=== PATIENT | female | born 1955 | race Caucasian/White ===

== ENCOUNTER 2020-12-06 08:03 | Emergency (ER) | payer BC, SELFPAY ==
[~2020-12-06] VITALS: Ht 170.2 cm; Wt 69.9 kg
[2020-12-06 08:09] VITALS: BP_SYST 158
[2020-12-06] MEDS ORDERED: NS 500 ML IV SCH (08:15)
[2020-12-06 09:08] LABS: BASOPHILS % (AUTO) 0.5 % (0.0-2.0); EOSINOPHILS % (AUTO) 0.2 % (0.0-4.0); HEMATOCRIT 43.5 % (36-48); HEMOGLOBIN 14.5 g/dL (12.0-16.0); LYMPHOCYTES # (AUTO) 1.1 K/uL (1.0-5.5); MEAN CORPUSCULAR HEMOGLOBIN 32 pg (27-31); MEAN CORPUSCULAR HGB CONC 33 % (32-36); MEAN CORPUSCULAR VOLUME 96 fL (79.0-98.0); MONOCYTES # (AUTO) 0.5 K/uL (0.0-1.0); MONOCYTES % (AUTO) 5.3 % (1.7-9.3); NEUTROPHILS # (AUTO) 8.1 K/uL (1.8-7.7); PLATELET COUNT (AUTO) 250 K/uL (130-430); RED BLOOD CELL COUNT(AUTO) 4.54 MIL/uL (4.2-6.2); WHITE BLOOD COUNT (AUTO) 9.8 K/uL (4.8-10.8)
[2020-12-06 09:53] LABS: CALCIUM 9.4 mg/dL (8.4-11.0); CREATININE 0.96 mg/dL (0.55-1.30); POTASSIUM 4.1 mmol/L (3.5-5.1)
[2020-12-06 10:06] LABS: PROTHROMBIN TIME 10.7 SECS (9.5-12.5)
[2020-12-06] MEDS ORDERED: NS 500 ML IV ONE (10:15)
[2020-12-06 10:16] LABS: ALBUMIN 3.8 g/dL (3.4-4.8); TOTAL BILIRUBIN 0.7 mg/dL (0.0-1.0)
[2020-12-06] MEDS ORDERED: CEFAZOLIN 2 GM IVPB PREMIX 50 ML IV ONE (11:15)
[2020-12-06] MEDS ORDERED: ceFAZolin SODIUM 2 GM in D5W 100 ML IV ONE (11:15)
[2020-12-06] MEDS ORDERED: ceFAZolin SODIUM 1 GM VIAL ONE (11:15)
[2020-12-06] MEDS ORDERED: LR 1,000 ML IV.SOLN IV ONE ×2 (11:32→12:13)
[2020-12-06] MEDS ORDERED: NS IRRIG SOLN 1000 ML IR ONE ×2 (11:32→12:13)
[2020-12-06] MEDS ORDERED: DEXAMETHASONE SOD PHOSPHATE 4 MG/ML VIAL IVP ONE (11:32)
[2020-12-06] MEDS ORDERED: fentaNYL CITRATE/PF 100 MCG/2 ML AMP IVP ONE (11:32)
[2020-12-06] MEDS ORDERED: MIDAZOLAM HCL 5 MG/5 ML VIAL IVP ONE (11:32)
[2020-12-06] MEDS ORDERED: PROPOFOL 200MG/ 20ML VIAL (DIPRIVAN) IV ONE ×2 (11:32→12:13)
[2020-12-06] MEDS ORDERED: WATER FOR IRRIGATION,STERILE 1,000 ML IRRIG.SOLN IR ONE ×2 (11:32→12:13)
[2020-12-06] MEDS ORDERED: ONDANSETRON HCL 4 MG/2 ML VIAL IVP ONE (11:32)
[2020-12-06] MEDS ORDERED: METOCLOPRAMIDE HCL 10 MG/2 ML VIAL IVP ONE (11:32)
[2020-12-06] MEDS ORDERED: fentaNYL CITRATE/PF 100 MCG/2 ML AMP ONE (12:13)
[2020-12-06] MEDS ORDERED: ONDANSETRON HCL 4 MG/2 ML VIAL ONE (12:13)
[2020-12-06] MEDS ORDERED: DEXAMETHASONE SOD PHOSPHATE 4 MG/ML VIAL ONE (12:13)
[2020-12-06] MEDS ORDERED: METOCLOPRAMIDE HCL 10 MG/2 ML VIAL ONE (12:13)
[2020-12-06] MEDS ORDERED: MIDAZOLAM HCL 5 MG/ML VIAL (VERSED) IV ONE (12:13)
[2020-12-06 13:24] VITALS: BP_SYST 109
== END 2020-12-06 11:20 | disposition admitted as inpatient to this hospital (09) ==
LOC: SED 08:03
DX: S31.41XA Laceration without foreign body of vagina and vulva, initial encounter (principal); Z20.822 Contact with and (suspected) exposure to COVID-19; X58.XXXA Exposure to other specified factors, initial encounter; Y93.89 Activity, other specified; Y92.89 Other specified places as the place of occurrence of the external cause; Y99.8 Other external cause status
CPT/HCPCS: 36415; 71045; 76856; 80053; 85025; 85610; 85730; 86886; 86900; 86901; 87426; 93005; 96360; 96361; 99285; J0690; J1100; J2250; J2405; J2704; J2765; J3010; J7040; J7120